=== PATIENT | male | born 1935 | race Caucasian/White ===

== ENCOUNTER 2020-11-22 15:59 | Observation (INO) ==
[2020-11-23] MEDS ORDERED: Acetaminophen 325 MG TABLET PO PRN ×2 (15:21→20:26)
[2020-11-23] MEDS ORDERED: Ondansetron ODT 4 MG TAB.RAPDIS SL PRN ×2 (15:21→20:26)
[2020-11-23] MEDS ORDERED: Naloxone 0.4 MG/ML INJ IVP PRN ×2 (15:21→20:26)
[2020-11-23] MEDS ORDERED: D5% in Water 1,000 ML IVC PRN ×2 (15:28→20:26)
[2020-11-23] MEDS ORDERED: *HR* Dextrose 50 % in Water (Vial) 50 ML VIAL IVP PRN ×2 (15:28→20:26)
[2020-11-23] MEDS ORDERED: Dextrose Gel 15 GM/37.5 ML TUBE PO PRN ×4 (15:28→20:26)
[2020-11-23] MEDS ORDERED: Azithromycin 250 MG TABLET PO SCH (15:30)
[2020-11-23] MEDS ORDERED: NON-FORMULARY MEDICATION 1 EACH EACH (Insulin Aspart [Novolog Flexpen] 5 UNIT) SQ SCH (16:30)
[2020-11-23] MEDS ORDERED: Insulin LISPRO 300 UNITS/3 ML VIAL SUBQ SCH ×2 (16:30→21:00)
[2020-11-23] MEDS ORDERED: NON-FORMULARY MEDICATION 1 EACH EACH (Atorvastatin Calcium [Lipitor] 80 MG) PO SCH (18:00)
[2020-11-23] MEDS: Ipratropium 1 PUFF INHALER IH SCH ×2 (20:44→21:06)
[2020-11-23] MEDS ORDERED: Insulin DETEMIR 100 UNIT/ML X5UNITS SUBQ SCH (21:00)
[2020-11-23] MEDS ORDERED: Insulin DETEMIR 100 UNIT/ML per UNIT SUBQ ONE (21:00)
[2020-11-23] MEDS ORDERED: Apixaban 2.5 MG TABLET PO SCH ×2 (21:00)
[2020-11-23] MEDS ORDERED: hydrALAZINE 25 MG TABLET PO SCH (21:00)
[2020-11-23] MEDS ORDERED: Apixaban 5 MG TABLET PO ONE (21:45)
[2020-11-23] MEDS: hydrALAZINE 25 MG TABLET PO SCH (21:47)
[2020-11-23] MEDS: Insulin LISPRO 300 UNITS/3 ML VIAL SUBQ SCH (21:47)
[2020-11-24] MEDS: Ipratropium 1 PUFF INHALER IH SCH ×7 (00:06→23:19)
[2020-11-24 06:24] LABS: Hematocrit 24.7 % (37.5-50.1); Hemoglobin 7.9 g/dL (12.9-16.9); Mean Corpuscular Hemoglobin 28.6 pg (28.0-33.3); Mean Corpuscular Volume 89.5 fL (83.0-100.0); Mean Platelet Volume 10.7 fL (9.4-12.4); Platelet Count 180 K/mcL (140-400); Red Blood Count 2.76 M/mcL (4.19-5.50); Red Cell Distribution Width 14.9 % (11.5-14.5)
[2020-11-24 06:50] LABS: Calcium 8.6 mg/dL (8.6-10.3); Potassium 4.3 mEq/L (3.5-5.1)
[2020-11-24] MEDS: Insulin DETEMIR 100 UNIT/ML X5UNITS SUBQ SCH ×2 (08:52→20:53)
[2020-11-24] MEDS: cefTRIAXone 1,000 MG in Water for inj. (sterile) 10 ML IVP SCH (08:53)
[2020-11-24] MEDS: Multivit/Ca/Min/Fe/FA 1 TAB TABLET PO SCH (08:53)
[2020-11-24] MEDS: Apixaban 5 MG TABLET PO SCH ×2 (08:55→20:52)
[2020-11-24] MEDS: Aspirin Enteric Coated 81 MG Tablet PO SCH (08:56)
[2020-11-24] MEDS: Insulin LISPRO 300 UNITS/3 ML VIAL SUBQ SCH ×7 (08:56→20:53)
[2020-11-24] MEDS: Metoprolol XL (24 HR) Succ 25 MG TAB.ER.24H PO SCH (08:56)
[2020-11-24] MEDS: Dexamethasone Sodium Phos/PF 10 MG/ML VIAL IVP SCH (08:58)
[2020-11-24] MEDS: hydrALAZINE 25 MG TABLET PO SCH ×3 (08:59→20:52)
[2020-11-24] MEDS ORDERED: BuPROPion XL (24 HR) 150 MG TABLET PO SCH (09:00)
[2020-11-24] MEDS ORDERED: Dexamethasone Sodium Phos/PF 10 MG/ML VIAL IVP SCH (09:00)
[2020-11-24] MEDS: BuPROPion XL (24 HR) 150 MG TABLET PO SCH (09:00)
[2020-11-24] MEDS ORDERED: Metoprolol XL (24 HR) Succ 25 MG TAB.ER.24H PO SCH (09:00)
[2020-11-24] MEDS ORDERED: cefTRIAXone 1,000 MG in Water for inj. (sterile) 10 ML IVP SCH (09:00)
[2020-11-24] MEDS ORDERED: [UNRECOGNIZED DRUG - OTHER] PO SCH (09:00)
[2020-11-24] MEDS ORDERED: Aspirin Enteric Coated 81 MG Tablet PO SCH (09:00)
[2020-11-24] MEDS: GuaiFENesin/Codeine Oral Soln 5 ML UDC PO PRN ×3 (10:39→22:35)
[2020-11-24] MEDS: Furosemide 40 MG TABLET PO SCH (10:39)
[2020-11-24] MEDS: Azithromycin 250 MG TABLET PO SCH (20:51)
[2020-11-25] MEDS: Ipratropium 1 PUFF INHALER IH SCH ×6 (03:52→23:14)
[2020-11-25] MEDS: GuaiFENesin/Codeine Oral Soln 5 ML UDC PO PRN ×2 (05:25→19:37)
[2020-11-25 07:55] LABS: Eosinophils % 0.3 %; Hematocrit 23.6 % (37.5-50.1); Hemoglobin 7.4 g/dL (12.9-16.9); Immature Granulocytes % 0.5 % (0-4); Lymphocytes # 1.3 K/mcL (0.6-4.6); Lymphocytes % 20.7 %; Mean Corpuscular HGB Conc 31.4 g/dL (31.6-35.5); Mean Corpuscular Hemoglobin 28.6 pg (28.0-33.3); Mean Corpuscular Volume 91.1 fL (83.0-100.0); Mean Platelet Volume 10.5 fL (9.4-12.4); Monocytes # 0.7 K/mcL (0.0-1.3); Monocytes % 10.9 %; Neutrophils # 4.3 K/mcL (1.6-8.9); Platelet Count 165 K/mcL (140-400); Red Blood Count 2.59 M/mcL (4.19-5.50); Red Cell Distribution Width 14.8 % (11.5-14.5); Segmented Neutrophils % 67.6 %; White Blood Count 6.3 K/mcL (4.3-11.1)
[2020-11-25 08:16] LABS: Albumin 2.9 g/dL (3.5-5.7); Albumin/Globulin Ratio 1.1 (1.1-2.2); Bilirubin,Total 0.7 mg/dL (0.3-1.0); Calcium 8.3 mg/dL (8.6-10.3); Globulin 2.6 g/dL (2.4-3.5); Total Protein 5.5 g/dL (6.4-8.9)
[2020-11-25] MEDS: Insulin LISPRO 300 UNITS/3 ML VIAL SUBQ SCH ×7 (08:47→21:13)
[2020-11-25] MEDS: Apixaban 5 MG TABLET PO SCH ×2 (08:49→20:54)
[2020-11-25] MEDS: hydrALAZINE 25 MG TABLET PO SCH ×3 (08:49→20:54)
[2020-11-25] MEDS: Multivit/Ca/Min/Fe/FA 1 TAB TABLET PO SCH (08:50)
[2020-11-25] MEDS: Metoprolol XL (24 HR) Succ 25 MG TAB.ER.24H PO SCH (08:50)
[2020-11-25] MEDS: Aspirin Enteric Coated 81 MG Tablet PO SCH (08:51)
[2020-11-25] MEDS: Furosemide 40 MG TABLET PO SCH (08:52)
[2020-11-25] MEDS: cefTRIAXone 1,000 MG in Water for inj. (sterile) 10 ML IVP SCH (08:52)
[2020-11-25] MEDS: Dexamethasone Sodium Phos/PF 10 MG/ML VIAL IVP SCH (08:54)
[2020-11-25] MEDS: BuPROPion XL (24 HR) 150 MG TABLET PO SCH (08:54)
[2020-11-25] MEDS: Insulin DETEMIR 100 UNIT/ML X5UNITS SUBQ SCH ×2 (10:02→20:55)
[2020-11-25] MEDS: Azithromycin 250 MG TABLET PO SCH (20:53)
[2020-11-26] MEDS: GuaiFENesin/Codeine Oral Soln 5 ML UDC PO PRN ×2 (02:31→20:40)
[2020-11-26] MEDS: Ipratropium 1 PUFF INHALER IH SCH ×3 (03:36→12:00)
[2020-11-26 07:00] LABS: Hematocrit 24.1 % (37.5-50.1); Hemoglobin 7.6 g/dL (12.9-16.9); Mean Corpuscular HGB Conc 31.5 g/dL (31.6-35.5); Mean Corpuscular Hemoglobin 28.8 pg (28.0-33.3); Mean Corpuscular Volume 91.3 fL (83.0-100.0); Platelet Count 174 K/mcL (140-400); Red Blood Count 2.64 M/mcL (4.19-5.50); Red Cell Distribution Width 14.9 % (11.5-14.5); White Blood Count 6.8 K/mcL (4.3-11.1)
[2020-11-26 07:26] LABS: Calcium 8.4 mg/dL (8.6-10.3); Magnesium 2.2 mg/dL (1.6-2.6); Potassium 3.9 mEq/L (3.5-5.1)
[2020-11-26] MEDS: Insulin LISPRO 300 UNITS/3 ML VIAL SUBQ SCH ×7 (08:06→20:51)
[2020-11-26] MEDS: Dexamethasone Sodium Phos/PF 10 MG/ML VIAL IVP SCH (08:07)
[2020-11-26] MEDS: cefTRIAXone 1,000 MG in Water for inj. (sterile) 10 ML IVP SCH (08:07)
[2020-11-26] MEDS: Aspirin Enteric Coated 81 MG Tablet PO SCH (08:08)
[2020-11-26] MEDS: Multivit/Ca/Min/Fe/FA 1 TAB TABLET PO SCH (08:08)
[2020-11-26] MEDS: BuPROPion XL (24 HR) 150 MG TABLET PO SCH (08:08)
[2020-11-26] MEDS: Apixaban 5 MG TABLET PO SCH ×2 (08:08→20:40)
[2020-11-26] MEDS: hydrALAZINE 25 MG TABLET PO SCH ×3 (08:08→20:40)
[2020-11-26] MEDS: Furosemide 40 MG TABLET PO SCH (08:09)
[2020-11-26] MEDS: Metoprolol XL (24 HR) Succ 25 MG TAB.ER.24H PO SCH (08:09)
[2020-11-26] MEDS: Insulin DETEMIR 100 UNIT/ML X5UNITS SUBQ SCH ×2 (08:21→20:40)
[2020-11-26] MEDS ORDERED: Ipratropium 1 PUFF INHALER IH PRN (12:41)
[2020-11-26] MEDS: Azithromycin 250 MG TABLET PO SCH (20:40)
[2020-11-27] MEDS: Furosemide 40 MG TABLET PO SCH (08:36)
[2020-11-27] MEDS: Aspirin Enteric Coated 81 MG Tablet PO SCH (08:36)
[2020-11-27] MEDS: Metoprolol XL (24 HR) Succ 25 MG TAB.ER.24H PO SCH (08:36)
[2020-11-27] MEDS: Apixaban 5 MG TABLET PO SCH ×2 (08:37→19:43)
[2020-11-27] MEDS: Multivit/Ca/Min/Fe/FA 1 TAB TABLET PO SCH (08:37)
[2020-11-27] MEDS: hydrALAZINE 25 MG TABLET PO SCH ×3 (08:37→19:43)
[2020-11-27] MEDS: BuPROPion XL (24 HR) 150 MG TABLET PO SCH (08:37)
[2020-11-27] MEDS: Insulin LISPRO 300 UNITS/3 ML VIAL SUBQ SCH ×7 (08:40→19:53)
[2020-11-27] MEDS: Dexamethasone Sodium Phos/PF 10 MG/ML VIAL IVP SCH (08:43)
[2020-11-27] MEDS: cefTRIAXone 1,000 MG in Water for inj. (sterile) 10 ML IVP SCH (08:44)
[2020-11-27] MEDS: Insulin DETEMIR 100 UNIT/ML X5UNITS SUBQ SCH (08:55)
[2020-11-27] MEDS: Azithromycin 250 MG TABLET PO SCH (19:43)
[2020-11-27] MEDS: GuaiFENesin/Codeine Oral Soln 5 ML UDC PO PRN (19:44)
[2020-11-27] MEDS ORDERED: Insulin DETEMIR 100 UNIT/ML X5UNITS SUBQ SCH (21:00)
[2020-11-28 06:56] LABS: Eosinophils # 0.1 K/mcL (0.0-0.6); Eosinophils % 0.9 %; Hematocrit 23.4 % (37.5-50.1); Hemoglobin 7.5 g/dL (12.9-16.9); Immature Granulocytes % 0.5 % (0-4); Lymphocytes # 1.5 K/mcL (0.6-4.6); Lymphocytes % 19.7 %; Mean Corpuscular HGB Conc 32.1 g/dL (31.6-35.5); Mean Corpuscular Hemoglobin 29.1 pg (28.0-33.3); Mean Corpuscular Volume 90.7 fL (83.0-100.0); Mean Platelet Volume 10.7 fL (9.4-12.4); Monocytes # 0.6 K/mcL (0.0-1.3); Monocytes % 7.7 %; Neutrophils # 5.5 K/mcL (1.6-8.9); Platelet Count 185 K/mcL (140-400); Red Blood Count 2.58 M/mcL (4.19-5.50); Red Cell Distribution Width 14.7 % (11.5-14.5); Segmented Neutrophils % 71.2 %; White Blood Count 7.7 K/mcL (4.3-11.1)
[2020-11-28 07:18] LABS: Calcium 8.3 mg/dL (8.6-10.3); Potassium 4.2 mEq/L (3.5-5.1)
[2020-11-28] MEDS: Insulin LISPRO 300 UNITS/3 ML VIAL SUBQ SCH ×6 (07:24→16:55)
[2020-11-28] MEDS: Multivit/Ca/Min/Fe/FA 1 TAB TABLET PO SCH (08:16)
[2020-11-28] MEDS: Aspirin Enteric Coated 81 MG Tablet PO SCH (08:16)
[2020-11-28] MEDS: hydrALAZINE 25 MG TABLET PO SCH ×2 (08:16→14:55)
[2020-11-28] MEDS: Metoprolol XL (24 HR) Succ 25 MG TAB.ER.24H PO SCH (08:16)
[2020-11-28] MEDS: BuPROPion XL (24 HR) 150 MG TABLET PO SCH (08:16)
[2020-11-28] MEDS: Dexamethasone Sodium Phos/PF 10 MG/ML VIAL IVP SCH (08:17)
[2020-11-28] MEDS: Apixaban 5 MG TABLET PO SCH (08:17)
[2020-11-28] MEDS: Furosemide 40 MG TABLET PO SCH (08:17)
[2020-11-28] MEDS ORDERED: Insulin DETEMIR 100 UNIT/ML X5UNITS SUBQ SCH (09:00)
[2020-11-28 10:35] LABS: Estimated Average Glucose 171 mg/dl; Hemoglobin A1C 7.6 %
[2020-11-28 14:21] VITALS: BP 156/57
== END 2020-11-28 17:58 ==
LOC: INPPIK
PROVIDERS: ADMIT Family Medicine; ATTEND Family Medicine

== ENCOUNTER 2020-11-28 16:00 | Inpatient (IN) ==
[2020-11-28] MEDS ORDERED: Dextrose Gel 15 GM/37.5 ML TUBE PO PRN ×2 (16:37)
[2020-11-28] MEDS ORDERED: *HR* Dextrose 50 % in Water (Vial) 50 ML VIAL IVP PRN (16:37)
[2020-11-28] MEDS ORDERED: D5% in Water 1,000 ML IVC PRN (16:37)
[2020-11-28] MEDS: hydrALAZINE 25 MG TABLET PO SCH (20:16)
[2020-11-28] MEDS: Ipratropium 1 PUFF INHALER IH SCH (20:58)
[2020-11-28] MEDS ORDERED: Apixaban 5 MG TABLET PO SCH (21:00)
[2020-11-29] MEDS: Ipratropium 1 PUFF INHALER IH SCH ×6 (00:41→20:44)
[2020-11-29] MEDS ORDERED: Benzonatate 100 MG CAPSULE PO PRN (04:08)
[2020-11-29] MEDS: GuaiFENesin/Codeine Oral Soln 5 ML UDC PO PRN (04:18)
[2020-11-29 06:28] LABS: Eosinophils # 0.1 K/mcL (0.0-0.6); Eosinophils % 0.8 %; Hematocrit 24.2 % (37.5-50.1); Hemoglobin 7.6 g/dL (12.9-16.9); Immature Granulocytes % 0.5 % (0-4); Lymphocytes # 1.8 K/mcL (0.6-4.6); Lymphocytes % 23.2 %; Mean Corpuscular HGB Conc 31.4 g/dL (31.6-35.5); Mean Corpuscular Hemoglobin 28.9 pg (28.0-33.3); Monocytes # 0.6 K/mcL (0.0-1.3); Monocytes % 7.6 %; Neutrophils # 5.2 K/mcL (1.6-8.9); Platelet Count 192 K/mcL (140-400); Red Blood Count 2.63 M/mcL (4.19-5.50); Red Cell Distribution Width 14.8 % (11.5-14.5); Segmented Neutrophils % 67.9 %; White Blood Count 7.6 K/mcL (4.3-11.1)
[2020-11-29 06:30] LABS: INR 1.2; Prothrombin Time 14.3 Seconds (9.4-12.1)
[2020-11-29 06:33] LABS: Activated Partial Thrombo Time 29.9 Seconds (26.0-36.0)
[2020-11-29] MEDS: Insulin LISPRO 300 UNITS/3 ML VIAL SUBQ SCH ×6 (07:32→16:29)
[2020-11-29] MEDS: Metoprolol XL (24 HR) Succ 25 MG TAB.ER.24H PO SCH (08:36)
[2020-11-29] MEDS: Insulin DETEMIR 100 UNIT/ML X5UNITS SUBQ SCH ×2 (08:36→20:08)
[2020-11-29] MEDS: Apixaban 5 MG TABLET PO SCH ×2 (08:37→20:07)
[2020-11-29] MEDS: Aspirin Enteric Coated 81 MG Tablet PO SCH (08:37)
[2020-11-29] MEDS: Multivit/Ca/Min/Fe/FA 1 TAB TABLET PO SCH (08:37)
[2020-11-29] MEDS: hydrALAZINE 25 MG TABLET PO SCH ×3 (08:37→20:07)
[2020-11-29] MEDS: Furosemide 40 MG TABLET PO SCH (08:37)
[2020-11-29] MEDS: BuPROPion XL (24 HR) 150 MG TABLET PO SCH (08:37)
[2020-11-29] MEDS ORDERED: Melatonin 3 MG TABLET PO ONE (20:44)
[2020-11-30] MEDS: Ipratropium 1 PUFF INHALER IH SCH ×7 (00:04→23:52)
[2020-11-30] MEDS: GuaiFENesin/Codeine Oral Soln 5 ML UDC PO PRN ×2 (02:33→20:07)
[2020-11-30] MEDS: Insulin LISPRO 300 UNITS/3 ML VIAL SUBQ SCH ×6 (07:22→16:49)
[2020-11-30] MEDS: hydrALAZINE 25 MG TABLET PO SCH ×3 (07:59→20:06)
[2020-11-30] MEDS: BuPROPion XL (24 HR) 150 MG TABLET PO SCH (08:00)
[2020-11-30] MEDS: Metoprolol XL (24 HR) Succ 25 MG TAB.ER.24H PO SCH (08:00)
[2020-11-30] MEDS: Apixaban 5 MG TABLET PO SCH ×2 (08:00→20:05)
[2020-11-30] MEDS: Aspirin Enteric Coated 81 MG Tablet PO SCH (08:02)
[2020-11-30] MEDS: Furosemide 40 MG TABLET PO SCH (08:02)
[2020-11-30] MEDS: Multivit/Ca/Min/Fe/FA 1 TAB TABLET PO SCH (08:02)
[2020-11-30] MEDS: Insulin DETEMIR 100 UNIT/ML X5UNITS SUBQ SCH ×2 (08:56→20:07)
[2020-12-01] MEDS ORDERED: *HR* OxyCODONE/APAP 5/325 TABLET PO PRN (00:17)
[2020-12-01] MEDS: GuaiFENesin/Codeine Oral Soln 5 ML UDC PO PRN (02:34)
[2020-12-01] MEDS: Ipratropium 1 PUFF INHALER IH SCH ×5 (04:15→20:23)
[2020-12-01] MEDS: hydrALAZINE 25 MG TABLET PO SCH ×3 (08:19→20:16)
[2020-12-01] MEDS: Multivit/Ca/Min/Fe/FA 1 TAB TABLET PO SCH (08:19)
[2020-12-01] MEDS: Furosemide 40 MG TABLET PO SCH (08:19)
[2020-12-01] MEDS: Metoprolol XL (24 HR) Succ 25 MG TAB.ER.24H PO SCH (08:20)
[2020-12-01] MEDS: Insulin LISPRO 300 UNITS/3 ML VIAL SUBQ SCH ×6 (08:20→16:35)
[2020-12-01] MEDS: BuPROPion XL (24 HR) 150 MG TABLET PO SCH (08:20)
[2020-12-01] MEDS: Apixaban 5 MG TABLET PO SCH ×2 (08:20→20:16)
[2020-12-01] MEDS: Aspirin Enteric Coated 81 MG Tablet PO SCH (08:20)
[2020-12-01] MEDS: Insulin DETEMIR 100 UNIT/ML X5UNITS SUBQ SCH ×2 (08:22→20:20)
[2020-12-01] MEDS: Acetaminophen 325 MG TABLET PO PRN (13:15)
[2020-12-01] MEDS: Nystatin POWDER 30 GM BOTTLE TP SCH ×2 (14:38→21:33)
[2020-12-02] MEDS: Ipratropium 1 PUFF INHALER IH SCH ×6 (00:07→20:27)
[2020-12-02] MEDS: Insulin LISPRO 300 UNITS/3 ML VIAL SUBQ SCH ×4 (07:09→16:30)
[2020-12-02] MEDS: BuPROPion XL (24 HR) 150 MG TABLET PO SCH (08:34)
[2020-12-02] MEDS: Aspirin Enteric Coated 81 MG Tablet PO SCH (08:34)
[2020-12-02] MEDS: Metoprolol XL (24 HR) Succ 25 MG TAB.ER.24H PO SCH (08:34)
[2020-12-02] MEDS: Multivit/Ca/Min/Fe/FA 1 TAB TABLET PO SCH (08:35)
[2020-12-02] MEDS: Furosemide 40 MG TABLET PO SCH (08:35)
[2020-12-02] MEDS: Apixaban 5 MG TABLET PO SCH ×2 (08:35→20:51)
[2020-12-02] MEDS: Insulin DETEMIR 100 UNIT/ML X5UNITS SUBQ SCH ×2 (08:36→09:18)
[2020-12-02] MEDS: hydrALAZINE 25 MG TABLET PO SCH ×3 (08:36→20:51)
[2020-12-02] MEDS: Nystatin POWDER 30 GM BOTTLE TP SCH ×3 (08:36→21:04)
[2020-12-02] MEDS: GuaiFENesin/Codeine Oral Soln 5 ML UDC PO PRN (23:47)
[2020-12-03] MEDS: Ipratropium 1 PUFF INHALER IH SCH ×6 (00:31→20:29)
[2020-12-03] MEDS: BuPROPion XL (24 HR) 150 MG TABLET PO SCH (08:36)
[2020-12-03] MEDS: hydrALAZINE 25 MG TABLET PO SCH ×3 (08:36→20:46)
[2020-12-03] MEDS: Furosemide 40 MG TABLET PO SCH (08:36)
[2020-12-03] MEDS: Aspirin Enteric Coated 81 MG Tablet PO SCH (08:36)
[2020-12-03] MEDS: Metoprolol XL (24 HR) Succ 25 MG TAB.ER.24H PO SCH (08:36)
[2020-12-03] MEDS: Multivit/Ca/Min/Fe/FA 1 TAB TABLET PO SCH (08:36)
[2020-12-03] MEDS: Apixaban 5 MG TABLET PO SCH ×2 (08:37→20:47)
[2020-12-03] MEDS: Insulin LISPRO 300 UNITS/3 ML VIAL SUBQ SCH ×3 (08:39→17:45)
[2020-12-03] MEDS: Insulin DETEMIR 100 UNIT/ML X5UNITS SUBQ SCH (08:39)
[2020-12-03] MEDS: Nystatin POWDER 30 GM BOTTLE TP SCH ×3 (09:49→20:48)
[2020-12-04] MEDS: Ipratropium 1 PUFF INHALER IH SCH ×6 (00:29→20:27)
[2020-12-04] MEDS: Furosemide 40 MG TABLET PO SCH (09:55)
[2020-12-04] MEDS: Aspirin Enteric Coated 81 MG Tablet PO SCH (09:55)
[2020-12-04] MEDS: Apixaban 5 MG TABLET PO SCH ×2 (09:56→20:29)
[2020-12-04] MEDS: Multivit/Ca/Min/Fe/FA 1 TAB TABLET PO SCH (09:56)
[2020-12-04] MEDS: Metoprolol XL (24 HR) Succ 25 MG TAB.ER.24H PO SCH (09:57)
[2020-12-04] MEDS: BuPROPion XL (24 HR) 150 MG TABLET PO SCH (09:57)
[2020-12-04] MEDS: hydrALAZINE 25 MG TABLET PO SCH ×3 (10:04→20:28)
[2020-12-04] MEDS: Insulin DETEMIR 100 UNIT/ML X5UNITS SUBQ SCH (10:04)
[2020-12-04] MEDS: Insulin LISPRO 300 UNITS/3 ML VIAL SUBQ SCH ×3 (10:08→17:13)
[2020-12-04] MEDS: Nystatin POWDER 30 GM BOTTLE TP SCH ×3 (10:09→17:13)
[2020-12-04] MEDS: Acetaminophen 325 MG TABLET PO PRN (15:53)
[2020-12-05] MEDS: Ipratropium 1 PUFF INHALER IH SCH ×3 (00:12→07:55)
[2020-12-05] MEDS: Insulin DETEMIR 100 UNIT/ML X5UNITS SUBQ SCH (08:12)
[2020-12-05] MEDS: Apixaban 5 MG TABLET PO SCH ×2 (08:13→21:38)
[2020-12-05] MEDS: Aspirin Enteric Coated 81 MG Tablet PO SCH (08:14)
[2020-12-05] MEDS: hydrALAZINE 25 MG TABLET PO SCH ×3 (08:15→21:37)
[2020-12-05] MEDS: Metoprolol XL (24 HR) Succ 25 MG TAB.ER.24H PO SCH (08:16)
[2020-12-05] MEDS: BuPROPion XL (24 HR) 150 MG TABLET PO SCH (08:16)
[2020-12-05] MEDS: Furosemide 40 MG TABLET PO SCH (08:17)
[2020-12-05] MEDS: Multivit/Ca/Min/Fe/FA 1 TAB TABLET PO SCH (08:17)
[2020-12-05] MEDS: Nystatin POWDER 30 GM BOTTLE TP SCH ×3 (08:18→21:38)
[2020-12-05] MEDS: Insulin LISPRO 300 UNITS/3 ML VIAL SUBQ SCH ×3 (08:24→16:52)
[2020-12-05] MEDS ORDERED: Ipratropium 1 PUFF INHALER IH PRN (08:46)
[2020-12-05] MEDS: Acetaminophen 325 MG TABLET PO PRN (17:58)
[2020-12-06 07:03] VITALS: BP 151/63
[2020-12-06] MEDS: Apixaban 5 MG TABLET PO SCH (08:54)
[2020-12-06] MEDS: Aspirin Enteric Coated 81 MG Tablet PO SCH (08:55)
[2020-12-06] MEDS: Metoprolol XL (24 HR) Succ 25 MG TAB.ER.24H PO SCH (08:55)
[2020-12-06] MEDS: BuPROPion XL (24 HR) 150 MG TABLET PO SCH (08:55)
[2020-12-06] MEDS: hydrALAZINE 25 MG TABLET PO SCH (08:55)
[2020-12-06] MEDS: Multivit/Ca/Min/Fe/FA 1 TAB TABLET PO SCH (08:55)
[2020-12-06] MEDS: Furosemide 40 MG TABLET PO SCH (08:56)
[2020-12-06] MEDS: Insulin DETEMIR 100 UNIT/ML X5UNITS SUBQ SCH (08:59)
[2020-12-06] MEDS: Insulin LISPRO 300 UNITS/3 ML VIAL SUBQ SCH ×2 (08:59→11:44)
[2020-12-06] MEDS: Nystatin POWDER 30 GM BOTTLE TP SCH (09:04)
== END 2020-12-06 15:39 | disposition home health service (06) | DRG 189 ==
LOC: INPPIK 18:17
PROVIDERS: ADMIT Family Medicine; ATTEND Family Medicine

== ENCOUNTER 2020-12-21 17:48 | Inpatient (IN) ==
[2020-12-22] MEDS ORDERED: Benzonatate 100 MG CAPSULE PO PRN (10:51)
[2020-12-22] MEDS: Insulin LISPRO 300 UNITS/3 ML VIAL SUBQ SCH ×2 (14:11→17:12)
[2020-12-22] MEDS: hydrALAZINE 25 MG TABLET PO SCH ×2 (17:11→20:08)
[2020-12-22] MEDS: Insulin DETEMIR 100 UNIT/ML X5UNITS SUBQ SCH (20:06)
[2020-12-22] MEDS: Sucralfate 1 GM TABLET PO SCH (20:08)
[2020-12-22] MEDS ORDERED: Melatonin 3 MG TABLET PO ONE (22:18)
[2020-12-22] MEDS: *HR* OxyCODONE Immed Rel 5 MG TABLET PO PRN (22:32)
[2020-12-23] MEDS ORDERED: hydrOXYzine pamoate 25 MG CAPSULE PO ONE (03:36)
[2020-12-23] MEDS ORDERED: *HR* Dextrose 50 % in Water (Vial) 50 ML VIAL IVP PRN (05:56)
[2020-12-23] MEDS ORDERED: D5% in Water 1,000 ML IVC PRN (05:56)
[2020-12-23] MEDS ORDERED: Dextrose Gel 15 GM/37.5 ML TUBE PO PRN ×2 (05:56)
[2020-12-23] MEDS ORDERED: Dextrose Gel 15 GM/37.5 ML TUBE PO ONE (05:58)
[2020-12-23 07:24] LABS: Basophils % 0.5 %; Eosinophils # 0.1 K/mcL (0.0-0.6); Eosinophils % 0.9 %; Hematocrit 26.4 % (37.5-50.1); Hemoglobin 8.2 g/dL (12.9-16.9); Immature Granulocytes % 0.3 % (0-4); Lymphocytes # 0.8 K/mcL (0.6-4.6); Lymphocytes % 11.6 %; Mean Corpuscular HGB Conc 31.1 g/dL (31.6-35.5); Mean Corpuscular Hemoglobin 29.1 pg (28.0-33.3); Mean Corpuscular Volume 93.6 fL (83.0-100.0); Mean Platelet Volume 10.2 fL (9.4-12.4); Monocytes # 0.9 K/mcL (0.0-1.3); Monocytes % 12.8 %; Neutrophils # 4.9 K/mcL (1.6-8.9); Platelet Count 175 K/mcL (140-400); Red Blood Count 2.82 M/mcL (4.19-5.50); Segmented Neutrophils % 73.9 %; White Blood Count 6.6 K/mcL (4.3-11.1)
[2020-12-23 07:37] LABS: INR 1.5; Prothrombin Time 16.6 Seconds (9.4-12.1)
[2020-12-23] MEDS: Insulin LISPRO 300 UNITS/3 ML VIAL SUBQ SCH ×3 (07:45→17:44)
[2020-12-23] MEDS ORDERED: Furosemide 40 MG TABLET PO SCH (09:00)
[2020-12-23] MEDS: BuPROPion XL (24 HR) 150 MG TABLET PO SCH (10:31)
[2020-12-23] MEDS: levoFLOXacin 500 MG TABLET PO SCH (10:31)
[2020-12-23] MEDS: hydrALAZINE 25 MG TABLET PO SCH ×3 (10:31→21:59)
[2020-12-23] MEDS: Multivit/Ca/Min/Fe/FA 1 TAB TABLET PO SCH (10:31)
[2020-12-23] MEDS: Aspirin Enteric Coated 81 MG Tablet PO SCH (10:31)
[2020-12-23] MEDS: Metoprolol XL (24 HR) Succ 25 MG TAB.ER.24H PO SCH (10:31)
[2020-12-23] MEDS: Insulin DETEMIR 100 UNIT/ML X5UNITS SUBQ SCH ×2 (11:59→22:00)
[2020-12-23] MEDS: *HR* OxyCODONE Immed Rel 5 MG TABLET PO PRN (14:38)
[2020-12-23] MEDS: *HR* LORazepam 0.5 MG TABLET PO PRN ×2 (15:40→22:06)
[2020-12-23] MEDS: Sucralfate 1 GM TABLET PO SCH (21:59)
[2020-12-24] MEDS: Furosemide 40 MG TABLET PO SCH ×3 (00:55→16:16)
[2020-12-24 06:38] LABS: Hematocrit 28.6 % (37.5-50.1); Hemoglobin 8.8 g/dL (12.9-16.9); Mean Corpuscular HGB Conc 30.8 g/dL (31.6-35.5); Mean Corpuscular Hemoglobin 28.9 pg (28.0-33.3); Mean Corpuscular Volume 94.1 fL (83.0-100.0); Mean Platelet Volume 10.2 fL (9.4-12.4); Platelet Count 188 K/mcL (140-400); Red Blood Count 3.04 M/mcL (4.19-5.50); Red Cell Distribution Width 15.9 % (11.5-14.5); White Blood Count 6.5 K/mcL (4.3-11.1)
[2020-12-24 07:12] LABS: Calcium 8.5 mg/dL (8.6-10.3); Magnesium 2.1 mg/dL (1.6-2.6); Potassium 3.8 mEq/L (3.5-5.1)
[2020-12-24] MEDS: Aspirin Enteric Coated 81 MG Tablet PO SCH (08:14)
[2020-12-24] MEDS: Metoprolol XL (24 HR) Succ 25 MG TAB.ER.24H PO SCH (08:14)
[2020-12-24] MEDS: levoFLOXacin 500 MG TABLET PO SCH (08:15)
[2020-12-24] MEDS: hydrALAZINE 25 MG TABLET PO SCH ×3 (08:15→20:39)
[2020-12-24] MEDS: *HR* OxyCODONE Immed Rel 5 MG TABLET PO PRN ×2 (08:15→20:53)
[2020-12-24] MEDS: Multivit/Ca/Min/Fe/FA 1 TAB TABLET PO SCH (08:15)
[2020-12-24] MEDS: BuPROPion XL (24 HR) 150 MG TABLET PO SCH (08:15)
[2020-12-24] MEDS: Insulin LISPRO 300 UNITS/3 ML VIAL SUBQ SCH ×3 (08:16→16:17)
[2020-12-24] MEDS: Insulin DETEMIR 100 UNIT/ML X5UNITS SUBQ SCH ×2 (08:17→20:53)
[2020-12-24] MEDS: Sucralfate 1 GM TABLET PO SCH (20:39)
[2020-12-24] MEDS: *HR* LORazepam 0.5 MG TABLET PO PRN (22:56)
[2020-12-25] MEDS: Insulin LISPRO 300 UNITS/3 ML VIAL SUBQ SCH ×3 (08:02→16:54)
[2020-12-25] MEDS: Aspirin Enteric Coated 81 MG Tablet PO SCH (08:03)
[2020-12-25] MEDS: Metoprolol XL (24 HR) Succ 25 MG TAB.ER.24H PO SCH (08:04)
[2020-12-25] MEDS: Multivit/Ca/Min/Fe/FA 1 TAB TABLET PO SCH (08:04)
[2020-12-25] MEDS: Furosemide 40 MG TABLET PO SCH ×2 (08:04→16:54)
[2020-12-25] MEDS: Apixaban 5 MG TABLET PO SCH ×2 (08:04→19:52)
[2020-12-25] MEDS: hydrALAZINE 25 MG TABLET PO SCH ×3 (08:04→19:52)
[2020-12-25] MEDS: BuPROPion XL (24 HR) 150 MG TABLET PO SCH (08:04)
[2020-12-25] MEDS: levoFLOXacin 500 MG TABLET PO SCH (08:05)
[2020-12-25] MEDS: Insulin DETEMIR 100 UNIT/ML X5UNITS SUBQ SCH ×2 (08:41→19:53)
[2020-12-25] MEDS: *HR* OxyCODONE Immed Rel 5 MG TABLET PO PRN ×2 (16:54→23:44)
[2020-12-25] MEDS: Sucralfate 1 GM TABLET PO SCH (19:53)
[2020-12-25] MEDS: *HR* LORazepam 0.5 MG TABLET PO PRN (23:04)
[2020-12-26] MEDS: Temazepam 15 MG CAPSULE PO PRN (00:44)
[2020-12-26] MEDS ORDERED: D5% in Water 1,000 ML IVC PRN (09:37)
[2020-12-26] MEDS ORDERED: Dextrose Gel 15 GM/37.5 ML TUBE PO PRN ×2 (09:37)
[2020-12-26] MEDS ORDERED: *HR* Dextrose 50 % in Water (Vial) 50 ML VIAL IVP PRN (09:37)
[2020-12-26] MEDS: Furosemide 40 MG TABLET PO SCH (10:02)
[2020-12-26] MEDS: Multivit/Ca/Min/Fe/FA 1 TAB TABLET PO SCH (10:02)
[2020-12-26] MEDS: levoFLOXacin 500 MG TABLET PO SCH (10:02)
[2020-12-26] MEDS: Aspirin Enteric Coated 81 MG Tablet PO SCH (10:02)
[2020-12-26] MEDS: Apixaban 5 MG TABLET PO SCH ×2 (10:02→20:33)
[2020-12-26] MEDS: BuPROPion XL (24 HR) 150 MG TABLET PO SCH (10:02)
[2020-12-26] MEDS: Metoprolol XL (24 HR) Succ 25 MG TAB.ER.24H PO SCH (10:03)
[2020-12-26] MEDS: *HR* OxyCODONE Immed Rel 5 MG TABLET PO PRN ×2 (10:03→20:34)
[2020-12-26] MEDS: hydrALAZINE 25 MG TABLET PO SCH ×3 (10:03→20:34)
[2020-12-26] MEDS: Insulin LISPRO 300 UNITS/3 ML VIAL SUBQ SCH ×5 (10:21→17:37)
[2020-12-26] MEDS: Insulin DETEMIR 100 UNIT/ML X5UNITS SUBQ SCH ×2 (10:21→20:34)
[2020-12-26] MEDS ORDERED: polyethylene glycoL 3350 17 GM POWD.PACK PO PRN (14:54)
[2020-12-26] MEDS ORDERED: Bisacodyl 10 MG RECTAL SUPPOSITORY RC PRN (14:54)
[2020-12-26 16:20] LABS: Basophils % 0.2 %; Hematocrit 29.3 % (37.5-50.1); Hemoglobin 9.1 g/dL (12.9-16.9); Immature Granulocytes % 0.3 % (0-4); Lymphocytes # 1.1 K/mcL (0.6-4.6); Lymphocytes % 12.6 %; Mean Corpuscular HGB Conc 31.1 g/dL (31.6-35.5); Mean Corpuscular Hemoglobin 28.9 pg (28.0-33.3); Mean Platelet Volume 10.2 fL (9.4-12.4); Monocytes # 1.4 K/mcL (0.0-1.3); Monocytes % 15.3 %; Neutrophils # 6.5 K/mcL (1.6-8.9); Platelet Count 202 K/mcL (140-400); Red Blood Count 3.15 M/mcL (4.19-5.50); Red Cell Distribution Width 15.8 % (11.5-14.5); Segmented Neutrophils % 71.6 %; White Blood Count 9.1 K/mcL (4.3-11.1)
[2020-12-26 16:55] LABS: Thyroid Stimulating Hormone 1.178 mcIU/mL (0.340-5.600)
[2020-12-26 17:05] LABS: Albumin 2.9 g/dL (3.5-5.7); Albumin/Globulin Ratio 0.8 (1.1-2.2); Bilirubin,Total 0.6 mg/dL (0.3-1.0); Calcium 8.4 mg/dL (8.6-10.3); Globulin 3.6 g/dL (2.4-3.5); Phosphorous 3.5 mg/dL (2.7-4.5); Potassium 3.8 mEq/L (3.5-5.1); Total Protein 6.5 g/dL (6.4-8.9)
[2020-12-26] MEDS: Sennosides/Docusate Sodium TABLET PO SCH ×2 (17:34→20:33)
[2020-12-26] MEDS: Sucralfate 1 GM TABLET PO SCH (20:33)
[2020-12-27] MEDS: Insulin DETEMIR 100 UNIT/ML X5UNITS SUBQ SCH ×2 (09:10→20:43)
[2020-12-27] MEDS: Sennosides/Docusate Sodium TABLET PO SCH ×2 (09:26→20:42)
[2020-12-27] MEDS: Aspirin Enteric Coated 81 MG Tablet PO SCH (09:26)
[2020-12-27] MEDS: Multivit/Ca/Min/Fe/FA 1 TAB TABLET PO SCH (09:26)
[2020-12-27] MEDS: Apixaban 5 MG TABLET PO SCH ×2 (09:26→20:42)
[2020-12-27] MEDS: BuPROPion XL (24 HR) 150 MG TABLET PO SCH (09:26)
[2020-12-27] MEDS: hydrALAZINE 25 MG TABLET PO SCH ×3 (09:26→20:42)
[2020-12-27] MEDS: Insulin LISPRO 300 UNITS/3 ML VIAL SUBQ SCH ×6 (09:27→16:27)
[2020-12-27] MEDS: Metoprolol XL (24 HR) Succ 25 MG TAB.ER.24H PO SCH (09:27)
[2020-12-27] MEDS: *HR* OxyCODONE Immed Rel 5 MG TABLET PO PRN (20:42)
[2020-12-27] MEDS: Sucralfate 1 GM TABLET PO SCH (20:42)
[2020-12-28] MEDS: *HR* LORazepam 0.5 MG TABLET PO PRN (02:12)
[2020-12-28] MEDS: Insulin DETEMIR 100 UNIT/ML X5UNITS SUBQ SCH ×2 (08:33→21:08)
[2020-12-28] MEDS: Insulin LISPRO 300 UNITS/3 ML VIAL SUBQ SCH ×6 (08:33→17:03)
[2020-12-28] MEDS: Furosemide 40 MG TABLET PO SCH (08:35)
[2020-12-28] MEDS: Apixaban 5 MG TABLET PO SCH ×2 (08:35→19:57)
[2020-12-28] MEDS: BuPROPion XL (24 HR) 150 MG TABLET PO SCH (08:36)
[2020-12-28] MEDS: Multivit/Ca/Min/Fe/FA 1 TAB TABLET PO SCH (08:36)
[2020-12-28] MEDS: Sennosides/Docusate Sodium TABLET PO SCH ×2 (08:36→19:56)
[2020-12-28] MEDS: hydrALAZINE 25 MG TABLET PO SCH ×3 (08:36→19:56)
[2020-12-28] MEDS: Metoprolol XL (24 HR) Succ 25 MG TAB.ER.24H PO SCH (08:36)
[2020-12-28] MEDS: Aspirin Enteric Coated 81 MG Tablet PO SCH (08:36)
[2020-12-28 13:34] LABS: Hematocrit RBC Folate 29.3 %
[2020-12-28] MEDS: *HR* OxyCODONE Immed Rel 5 MG TABLET PO PRN (19:55)
[2020-12-28] MEDS: Sucralfate 1 GM TABLET PO SCH (19:58)
[2020-12-28] MEDS: Temazepam 15 MG CAPSULE PO PRN (23:24)
[2020-12-29 07:07] LABS: Calcium 8.3 mg/dL (8.6-10.3); Potassium 3.7 mEq/L (3.5-5.1)
[2020-12-29] MEDS: Insulin LISPRO 300 UNITS/3 ML VIAL SUBQ SCH ×6 (08:22→16:03)
[2020-12-29] MEDS: Multivit/Ca/Min/Fe/FA 1 TAB TABLET PO SCH (08:24)
[2020-12-29] MEDS: Metoprolol XL (24 HR) Succ 25 MG TAB.ER.24H PO SCH (08:24)
[2020-12-29] MEDS: Apixaban 5 MG TABLET PO SCH ×2 (08:24→21:34)
[2020-12-29] MEDS: hydrALAZINE 25 MG TABLET PO SCH ×3 (08:24→21:35)
[2020-12-29] MEDS: Aspirin Enteric Coated 81 MG Tablet PO SCH (08:24)
[2020-12-29] MEDS: BuPROPion XL (24 HR) 150 MG TABLET PO SCH (08:24)
[2020-12-29] MEDS: Furosemide 40 MG TABLET PO SCH (08:25)
[2020-12-29] MEDS: Sennosides/Docusate Sodium TABLET PO SCH ×2 (08:25→21:41)
[2020-12-29] MEDS: Insulin DETEMIR 100 UNIT/ML X5UNITS SUBQ SCH ×2 (08:51→21:38)
[2020-12-29] MEDS: Temazepam 15 MG CAPSULE PO PRN (21:34)
[2020-12-29] MEDS: Sucralfate 1 GM TABLET PO SCH (21:34)
[2020-12-29] MEDS: *HR* OxyCODONE Immed Rel 5 MG TABLET PO PRN (21:35)
[2020-12-30] MEDS: Apixaban 5 MG TABLET PO SCH ×2 (08:26→22:21)
[2020-12-30] MEDS: BuPROPion XL (24 HR) 150 MG TABLET PO SCH (08:26)
[2020-12-30] MEDS: Furosemide 40 MG TABLET PO SCH (08:26)
[2020-12-30] MEDS: Metoprolol XL (24 HR) Succ 25 MG TAB.ER.24H PO SCH (08:26)
[2020-12-30] MEDS: hydrALAZINE 25 MG TABLET PO SCH ×3 (08:26→22:20)
[2020-12-30] MEDS: Aspirin Enteric Coated 81 MG Tablet PO SCH (08:27)
[2020-12-30] MEDS: Multivit/Ca/Min/Fe/FA 1 TAB TABLET PO SCH (08:27)
[2020-12-30] MEDS: Insulin LISPRO 300 UNITS/3 ML VIAL SUBQ SCH ×6 (08:27→15:47)
[2020-12-30] MEDS: Sennosides/Docusate Sodium TABLET PO SCH ×2 (08:27→22:20)
[2020-12-30] MEDS: Insulin DETEMIR 100 UNIT/ML X5UNITS SUBQ SCH ×2 (08:33→22:45)
[2020-12-30] MEDS: Temazepam 15 MG CAPSULE PO PRN (22:21)
[2020-12-30] MEDS: Sucralfate 1 GM TABLET PO SCH (22:21)
[2020-12-31] MEDS: *HR* OxyCODONE Immed Rel 5 MG TABLET PO PRN ×2 (07:02→20:48)
[2020-12-31] MEDS: Insulin LISPRO 300 UNITS/3 ML VIAL SUBQ SCH ×6 (08:37→17:39)
[2020-12-31] MEDS: Furosemide 40 MG TABLET PO SCH (08:49)
[2020-12-31] MEDS: Apixaban 5 MG TABLET PO SCH ×2 (08:49→20:48)
[2020-12-31] MEDS: Multivit/Ca/Min/Fe/FA 1 TAB TABLET PO SCH (08:49)
[2020-12-31] MEDS: hydrALAZINE 25 MG TABLET PO SCH ×3 (08:49→20:48)
[2020-12-31] MEDS: Aspirin Enteric Coated 81 MG Tablet PO SCH (08:49)
[2020-12-31] MEDS: Metoprolol XL (24 HR) Succ 25 MG TAB.ER.24H PO SCH (08:49)
[2020-12-31] MEDS: Sennosides/Docusate Sodium TABLET PO SCH ×2 (08:49→20:47)
[2020-12-31] MEDS: BuPROPion XL (24 HR) 150 MG TABLET PO SCH (08:50)
[2020-12-31] MEDS: Insulin DETEMIR 100 UNIT/ML X5UNITS SUBQ SCH ×2 (08:51→20:48)
[2020-12-31] MEDS: Sucralfate 1 GM TABLET PO SCH (20:47)
[2020-12-31] MEDS: Temazepam 15 MG CAPSULE PO PRN (20:47)
[2020-12-31] MEDS: *HR* LORazepam 0.5 MG TABLET PO PRN (23:07)
[2021-01-01] MEDS: Sennosides/Docusate Sodium TABLET PO SCH ×2 (09:51→21:34)
[2021-01-01] MEDS: Apixaban 5 MG TABLET PO SCH ×2 (09:51→21:35)
[2021-01-01] MEDS: Aspirin Enteric Coated 81 MG Tablet PO SCH (09:51)
[2021-01-01] MEDS: BuPROPion XL (24 HR) 150 MG TABLET PO SCH (09:52)
[2021-01-01] MEDS: Multivit/Ca/Min/Fe/FA 1 TAB TABLET PO SCH (09:52)
[2021-01-01] MEDS: Furosemide 40 MG TABLET PO SCH (09:52)
[2021-01-01] MEDS: Metoprolol XL (24 HR) Succ 25 MG TAB.ER.24H PO SCH (09:52)
[2021-01-01] MEDS: hydrALAZINE 25 MG TABLET PO SCH ×3 (09:52→21:34)
[2021-01-01] MEDS: *HR* OxyCODONE Immed Rel 5 MG TABLET PO PRN ×2 (09:53→21:51)
[2021-01-01] MEDS: Insulin LISPRO 300 UNITS/3 ML VIAL SUBQ SCH ×6 (09:56→18:11)
[2021-01-01] MEDS: Insulin DETEMIR 100 UNIT/ML X5UNITS SUBQ SCH ×2 (10:10→21:35)
[2021-01-01] MEDS: Sucralfate 1 GM TABLET PO SCH (21:35)
[2021-01-02] MEDS: Insulin LISPRO 300 UNITS/3 ML VIAL SUBQ SCH ×6 (09:25→16:01)
[2021-01-02] MEDS: Apixaban 5 MG TABLET PO SCH ×2 (09:26→20:19)
[2021-01-02] MEDS: Aspirin Enteric Coated 81 MG Tablet PO SCH (09:27)
[2021-01-02] MEDS: hydrALAZINE 25 MG TABLET PO SCH ×3 (09:27→20:19)
[2021-01-02] MEDS: BuPROPion XL (24 HR) 150 MG TABLET PO SCH (09:28)
[2021-01-02] MEDS: Multivit/Ca/Min/Fe/FA 1 TAB TABLET PO SCH (09:28)
[2021-01-02] MEDS: Metoprolol XL (24 HR) Succ 25 MG TAB.ER.24H PO SCH (09:28)
[2021-01-02] MEDS: Sennosides/Docusate Sodium TABLET PO SCH ×2 (09:28→20:19)
[2021-01-02] MEDS: Furosemide 40 MG TABLET PO SCH (09:29)
[2021-01-02] MEDS: Insulin DETEMIR 100 UNIT/ML X5UNITS SUBQ SCH ×2 (09:32→20:19)
[2021-01-02] MEDS: Sucralfate 1 GM TABLET PO SCH (20:19)
[2021-01-02] MEDS: *HR* OxyCODONE Immed Rel 5 MG TABLET PO PRN (20:23)
[2021-01-02] MEDS: Temazepam 15 MG CAPSULE PO PRN (23:30)
[2021-01-03] MEDS: Metoprolol XL (24 HR) Succ 25 MG TAB.ER.24H PO SCH (09:13)
[2021-01-03] MEDS: Apixaban 5 MG TABLET PO SCH ×2 (09:14→20:30)
[2021-01-03] MEDS: Aspirin Enteric Coated 81 MG Tablet PO SCH (09:15)
[2021-01-03] MEDS: BuPROPion XL (24 HR) 150 MG TABLET PO SCH (09:15)
[2021-01-03] MEDS: Multivit/Ca/Min/Fe/FA 1 TAB TABLET PO SCH (09:15)
[2021-01-03] MEDS: hydrALAZINE 25 MG TABLET PO SCH ×3 (09:16→20:30)
[2021-01-03] MEDS: Insulin LISPRO 300 UNITS/3 ML VIAL SUBQ SCH ×6 (09:17→15:56)
[2021-01-03] MEDS: Furosemide 40 MG TABLET PO SCH (09:17)
[2021-01-03] MEDS: Sennosides/Docusate Sodium TABLET PO SCH ×2 (09:21→20:31)
[2021-01-03] MEDS: Insulin DETEMIR 100 UNIT/ML X5UNITS SUBQ SCH ×2 (10:38→20:33)
[2021-01-03 10:44] LABS: Hematocrit 25.5 % (37.5-50.1); Hemoglobin 7.9 g/dL (12.9-16.9); Mean Corpuscular Hemoglobin 28.5 pg (28.0-33.3); Mean Corpuscular Volume 92.1 fL (83.0-100.0); Mean Platelet Volume 9.6 fL (9.4-12.4); Platelet Count 280 K/mcL (140-400); Red Blood Count 2.77 M/mcL (4.19-5.50); Red Cell Distribution Width 15.7 % (11.5-14.5); White Blood Count 7.3 K/mcL (4.3-11.1)
[2021-01-03 10:59] LABS: Calcium 8.3 mg/dL (8.6-10.3); Potassium 4.4 mEq/L (3.5-5.1)
[2021-01-03] MEDS: Sucralfate 1 GM TABLET PO SCH (20:36)
[2021-01-03] MEDS: *HR* OxyCODONE Immed Rel 5 MG TABLET PO PRN (20:43)
[2021-01-03] MEDS: *HR* LORazepam 0.5 MG TABLET PO PRN (20:43)
[2021-01-04] MEDS: Melatonin 3 MG TABLET PO PRN ×2 (00:18→21:14)
[2021-01-04] MEDS: *HR* OxyCODONE Immed Rel 5 MG TABLET PO PRN ×2 (08:01→21:15)
[2021-01-04] MEDS: Apixaban 5 MG TABLET PO SCH ×2 (08:01→21:14)
[2021-01-04] MEDS: Sennosides/Docusate Sodium TABLET PO SCH ×2 (08:01→21:15)
[2021-01-04] MEDS: Aspirin Enteric Coated 81 MG Tablet PO SCH (08:02)
[2021-01-04] MEDS: hydrALAZINE 25 MG TABLET PO SCH ×3 (08:02→21:14)
[2021-01-04] MEDS: Metoprolol XL (24 HR) Succ 25 MG TAB.ER.24H PO SCH (08:02)
[2021-01-04] MEDS: BuPROPion XL (24 HR) 150 MG TABLET PO SCH (08:02)
[2021-01-04] MEDS: Furosemide 40 MG TABLET PO SCH (08:02)
[2021-01-04] MEDS: Multivit/Ca/Min/Fe/FA 1 TAB TABLET PO SCH (08:02)
[2021-01-04] MEDS: Insulin LISPRO 300 UNITS/3 ML VIAL SUBQ SCH ×6 (08:05→17:52)
[2021-01-04] MEDS: Insulin DETEMIR 100 UNIT/ML X5UNITS SUBQ SCH ×2 (10:41→21:14)
[2021-01-04] MEDS: Sucralfate 1 GM TABLET PO SCH (21:15)
[2021-01-05] MEDS: Insulin LISPRO 300 UNITS/3 ML VIAL SUBQ SCH ×6 (07:39→16:37)
[2021-01-05 08:38] LABS: Basophils % 0.4 %; Eosinophils # 0.2 K/mcL (0.0-0.6); Eosinophils % 2.2 %; Hematocrit 24.3 % (37.5-50.1); Hemoglobin 7.3 g/dL (12.9-16.9); Immature Granulocytes % 0.3 % (0-4); Lymphocytes # 1.6 K/mcL (0.6-4.6); Lymphocytes % 23.2 %; Mean Corpuscular Hemoglobin 27.8 pg (28.0-33.3); Mean Corpuscular Volume 92.4 fL (83.0-100.0); Mean Platelet Volume 9.9 fL (9.4-12.4); Monocytes # 0.8 K/mcL (0.0-1.3); Monocytes % 11.5 %; Neutrophils # 4.2 K/mcL (1.6-8.9); Platelet Count 256 K/mcL (140-400); Red Blood Count 2.63 M/mcL (4.19-5.50); Segmented Neutrophils % 62.4 %; White Blood Count 6.8 K/mcL (4.3-11.1)
[2021-01-05 08:55] LABS: Calcium 8.2 mg/dL (8.6-10.3); Potassium 4.5 mEq/L (3.5-5.1)
[2021-01-05] MEDS: hydrALAZINE 25 MG TABLET PO SCH ×3 (09:48→20:14)
[2021-01-05] MEDS: Metoprolol XL (24 HR) Succ 25 MG TAB.ER.24H PO SCH (09:49)
[2021-01-05] MEDS: BuPROPion XL (24 HR) 150 MG TABLET PO SCH (09:49)
[2021-01-05] MEDS: Apixaban 5 MG TABLET PO SCH ×2 (09:49→20:14)
[2021-01-05] MEDS: Aspirin Enteric Coated 81 MG Tablet PO SCH (09:49)
[2021-01-05] MEDS: Sennosides/Docusate Sodium TABLET PO SCH ×2 (09:49→20:13)
[2021-01-05] MEDS: Multivit/Ca/Min/Fe/FA 1 TAB TABLET PO SCH (09:49)
[2021-01-05] MEDS: Furosemide 40 MG TABLET PO SCH (09:49)
[2021-01-05] MEDS: Insulin DETEMIR 100 UNIT/ML X5UNITS SUBQ SCH ×2 (09:50→20:14)
[2021-01-05] MEDS: *HR* OxyCODONE Immed Rel 5 MG TABLET PO PRN (20:13)
[2021-01-05] MEDS: Sucralfate 1 GM TABLET PO SCH (20:14)
[2021-01-05] MEDS: Melatonin 3 MG TABLET PO PRN (20:14)
[2021-01-05] MEDS: *HR* LORazepam 0.5 MG TABLET PO PRN (22:08)
[2021-01-06] MEDS: *HR* OxyCODONE Immed Rel 5 MG TABLET PO PRN ×2 (06:12→23:04)
[2021-01-06 08:11] LABS: Hematocrit 24.7 % (37.5-50.1); Hemoglobin 7.6 g/dL (12.9-16.9); Mean Corpuscular HGB Conc 30.8 g/dL (31.6-35.5); Mean Corpuscular Hemoglobin 28.3 pg (28.0-33.3); Mean Corpuscular Volume 91.8 fL (83.0-100.0); Mean Platelet Volume 9.6 fL (9.4-12.4); Platelet Count 250 K/mcL (140-400); Red Blood Count 2.69 M/mcL (4.19-5.50); Red Cell Distribution Width 16.1 % (11.5-14.5)
[2021-01-06] MEDS: Insulin LISPRO 300 UNITS/3 ML VIAL SUBQ SCH ×6 (08:36→16:17)
[2021-01-06] MEDS: Aspirin Enteric Coated 81 MG Tablet PO SCH (08:36)
[2021-01-06] MEDS: Insulin DETEMIR 100 UNIT/ML X5UNITS SUBQ SCH ×2 (08:36→20:28)
[2021-01-06] MEDS: Multivit/Ca/Min/Fe/FA 1 TAB TABLET PO SCH (08:36)
[2021-01-06] MEDS: Furosemide 40 MG TABLET PO SCH (08:37)
[2021-01-06] MEDS: hydrALAZINE 25 MG TABLET PO SCH ×3 (08:37→20:28)
[2021-01-06] MEDS: Apixaban 5 MG TABLET PO SCH ×2 (08:37→20:29)
[2021-01-06] MEDS: BuPROPion XL (24 HR) 150 MG TABLET PO SCH (08:37)
[2021-01-06] MEDS: Metoprolol XL (24 HR) Succ 25 MG TAB.ER.24H PO SCH (08:37)
[2021-01-06] MEDS: Sennosides/Docusate Sodium TABLET PO SCH ×2 (08:40→20:28)
[2021-01-06] MEDS: Melatonin 3 MG TABLET PO PRN (20:28)
[2021-01-06] MEDS: *HR* LORazepam 0.5 MG TABLET PO PRN (20:28)
[2021-01-06] MEDS: Sucralfate 1 GM TABLET PO SCH (20:28)
[2021-01-07] MEDS: Insulin DETEMIR 100 UNIT/ML X5UNITS SUBQ SCH ×2 (08:42→22:07)
[2021-01-07] MEDS: Sennosides/Docusate Sodium TABLET PO SCH ×2 (08:43→22:06)
[2021-01-07] MEDS: Insulin LISPRO 300 UNITS/3 ML VIAL SUBQ SCH ×6 (08:43→16:25)
[2021-01-07] MEDS: *HR* LORazepam 0.5 MG TABLET PO PRN ×2 (08:44→22:06)
[2021-01-07] MEDS: hydrALAZINE 25 MG TABLET PO SCH ×3 (08:44→22:06)
[2021-01-07] MEDS: Aspirin Enteric Coated 81 MG Tablet PO SCH (08:45)
[2021-01-07] MEDS: Furosemide 40 MG TABLET PO SCH (08:45)
[2021-01-07] MEDS: Metoprolol XL (24 HR) Succ 25 MG TAB.ER.24H PO SCH (08:45)
[2021-01-07] MEDS: Multivit/Ca/Min/Fe/FA 1 TAB TABLET PO SCH (08:45)
[2021-01-07] MEDS: BuPROPion XL (24 HR) 150 MG TABLET PO SCH (08:45)
[2021-01-07] MEDS: Apixaban 5 MG TABLET PO SCH ×2 (08:45→22:07)
[2021-01-07] MEDS: *HR* OxyCODONE Immed Rel 5 MG TABLET PO PRN (08:45)
[2021-01-07] MEDS: Melatonin 3 MG TABLET PO PRN (22:06)
[2021-01-07] MEDS: Sucralfate 1 GM TABLET PO SCH (22:06)
[2021-01-07] MEDS: Methyl Salicylate/Menthol 57 APPL/57 GM TUBE TP PRN (22:14)
[2021-01-08] MEDS: *HR* OxyCODONE Immed Rel 5 MG TABLET PO PRN ×2 (06:47→21:14)
[2021-01-08] MEDS: Insulin LISPRO 300 UNITS/3 ML VIAL SUBQ SCH ×6 (07:18→17:31)
[2021-01-08] MEDS: *HR* LORazepam 0.5 MG TABLET PO PRN ×2 (08:39→21:15)
[2021-01-08] MEDS: Furosemide 40 MG TABLET PO SCH (08:39)
[2021-01-08] MEDS: Metoprolol XL (24 HR) Succ 25 MG TAB.ER.24H PO SCH (08:39)
[2021-01-08] MEDS: BuPROPion XL (24 HR) 150 MG TABLET PO SCH (08:39)
[2021-01-08] MEDS: Multivit/Ca/Min/Fe/FA 1 TAB TABLET PO SCH (08:39)
[2021-01-08] MEDS: Sennosides/Docusate Sodium TABLET PO SCH ×2 (08:39→21:22)
[2021-01-08] MEDS: Aspirin Enteric Coated 81 MG Tablet PO SCH (08:39)
[2021-01-08] MEDS: Apixaban 5 MG TABLET PO SCH ×2 (08:39→21:15)
[2021-01-08] MEDS: Insulin DETEMIR 100 UNIT/ML X5UNITS SUBQ SCH ×2 (09:07→21:15)
[2021-01-08] MEDS: hydrALAZINE 25 MG TABLET PO SCH ×3 (09:07→21:14)
[2021-01-08] MEDS: Melatonin 3 MG TABLET PO PRN (21:15)
[2021-01-08] MEDS: Methyl Salicylate/Menthol 57 APPL/57 GM TUBE TP PRN (21:18)
[2021-01-08] MEDS: Sucralfate 1 GM TABLET PO SCH (21:25)
[2021-01-09 07:04] LABS: Basophils % 0.5 %; Eosinophils # 0.2 K/mcL (0.0-0.6); Eosinophils % 2.5 %; Hematocrit 21.4 % (37.5-50.1); Hemoglobin 6.6 g/dL (12.9-16.9); Immature Granulocytes % 0.2 % (0-4); Lymphocytes # 1.7 K/mcL (0.6-4.6); Lymphocytes % 26.9 %; Mean Corpuscular HGB Conc 30.8 g/dL (31.6-35.5); Mean Corpuscular Volume 90.7 fL (83.0-100.0); Monocytes # 0.7 K/mcL (0.0-1.3); Monocytes % 10.3 %; Neutrophils # 3.8 K/mcL (1.6-8.9); Platelet Count 228 K/mcL (140-400); Red Blood Count 2.36 M/mcL (4.19-5.50); Red Cell Distribution Width 15.9 % (11.5-14.5); Segmented Neutrophils % 59.6 %; White Blood Count 6.3 K/mcL (4.3-11.1)
[2021-01-09] MEDS ORDERED: Furosemide 20 MG/2 ML VIAL IVP ONE ×3 (07:29→16:16)
[2021-01-09] MEDS ORDERED: 0.9 % Sodium Chloride 250 ML IVC SCH (07:30)
[2021-01-09 07:42] LABS: Potassium 4.5 mEq/L (3.5-5.1)
[2021-01-09] MEDS: Insulin LISPRO 300 UNITS/3 ML VIAL SUBQ SCH ×6 (08:34→16:44)
[2021-01-09 08:53] LABS: Retculocyte # 0.04 M/mcL (0.05-0.10); Reticulocyte % 1.6 % (1.6-2.8)
[2021-01-09] MEDS ORDERED: 0.9 % Sodium Chloride 250 ML ONE (08:56)
[2021-01-09] MEDS: Multivit/Ca/Min/Fe/FA 1 TAB TABLET PO SCH (09:01)
[2021-01-09] MEDS: hydrALAZINE 25 MG TABLET PO SCH ×3 (09:01→20:36)
[2021-01-09] MEDS: BuPROPion XL (24 HR) 150 MG TABLET PO SCH (09:01)
[2021-01-09] MEDS: Metoprolol XL (24 HR) Succ 25 MG TAB.ER.24H PO SCH (09:01)
[2021-01-09] MEDS: Sennosides/Docusate Sodium TABLET PO SCH ×2 (09:02→20:35)
[2021-01-09] MEDS: Insulin DETEMIR 100 UNIT/ML X5UNITS SUBQ SCH ×2 (09:31→20:37)
[2021-01-09] MEDS: *HR* OxyCODONE Immed Rel 5 MG TABLET PO PRN ×2 (10:29→20:36)
[2021-01-09] MEDS: Melatonin 3 MG TABLET PO PRN (20:35)
[2021-01-09] MEDS: Sucralfate 1 GM TABLET PO SCH (20:35)
[2021-01-10] MEDS: Temazepam 15 MG CAPSULE PO PRN ×2 (00:49→20:26)
[2021-01-10 06:51] LABS: Basophils % 0.5 %; Eosinophils # 0.1 K/mcL (0.0-0.6); Eosinophils % 2.1 %; Hematocrit 26.6 % (37.5-50.1); Hemoglobin 8.5 g/dL (12.9-16.9); Immature Granulocytes % 0.5 % (0-4); Lymphocytes # 1.4 K/mcL (0.6-4.6); Lymphocytes % 24.4 %; Mean Corpuscular Hemoglobin 28.6 pg (28.0-33.3); Mean Corpuscular Volume 89.6 fL (83.0-100.0); Mean Platelet Volume 9.6 fL (9.4-12.4); Monocytes # 0.6 K/mcL (0.0-1.3); Monocytes % 10.6 %; Neutrophils # 3.6 K/mcL (1.6-8.9); Platelet Count 203 K/mcL (140-400); Red Blood Count 2.97 M/mcL (4.19-5.50); Red Cell Distribution Width 15.5 % (11.5-14.5); Segmented Neutrophils % 61.9 %; White Blood Count 5.7 K/mcL (4.3-11.1)
[2021-01-10 07:06] LABS: Calcium 8.1 mg/dL (8.6-10.3); Potassium 4.6 mEq/L (3.5-5.1)
[2021-01-10] MEDS: Sennosides/Docusate Sodium TABLET PO SCH ×2 (09:30→20:27)
[2021-01-10] MEDS: *HR* OxyCODONE Immed Rel 5 MG TABLET PO PRN ×2 (09:32→20:26)
[2021-01-10] MEDS: Furosemide 40 MG TABLET PO SCH (09:32)
[2021-01-10] MEDS: Multivit/Ca/Min/Fe/FA 1 TAB TABLET PO SCH (09:32)
[2021-01-10] MEDS: BuPROPion XL (24 HR) 150 MG TABLET PO SCH (09:32)
[2021-01-10] MEDS: Metoprolol XL (24 HR) Succ 25 MG TAB.ER.24H PO SCH (09:33)
[2021-01-10] MEDS: Insulin DETEMIR 100 UNIT/ML X5UNITS SUBQ SCH ×2 (09:33→20:27)
[2021-01-10] MEDS: hydrALAZINE 25 MG TABLET PO SCH ×3 (09:33→20:27)
[2021-01-10] MEDS: Insulin LISPRO 300 UNITS/3 ML VIAL SUBQ SCH ×6 (09:38→17:04)
[2021-01-10] MEDS: Sucralfate 1 GM TABLET PO SCH (20:26)
[2021-01-11] MEDS: Insulin LISPRO 300 UNITS/3 ML VIAL SUBQ SCH ×4 (08:41→17:04)
[2021-01-11] MEDS: Aspirin Enteric Coated 81 MG Tablet PO SCH (08:42)
[2021-01-11] MEDS: BuPROPion XL (24 HR) 150 MG TABLET PO SCH (08:42)
[2021-01-11] MEDS: Multivit/Ca/Min/Fe/FA 1 TAB TABLET PO SCH (08:42)
[2021-01-11] MEDS: Sennosides/Docusate Sodium TABLET PO SCH ×2 (08:42→19:57)
[2021-01-11] MEDS: Furosemide 40 MG TABLET PO SCH (08:43)
[2021-01-11] MEDS: Metoprolol XL (24 HR) Succ 25 MG TAB.ER.24H PO SCH (08:43)
[2021-01-11] MEDS: hydrALAZINE 25 MG TABLET PO SCH ×3 (08:43→19:57)
[2021-01-11] MEDS: Insulin DETEMIR 100 UNIT/ML X5UNITS SUBQ SCH (08:44)
[2021-01-11 09:23] LABS: Basophils % 0.7 %; Eosinophils # 0.2 K/mcL (0.0-0.6); Eosinophils % 2.9 %; Hematocrit 29.3 % (37.5-50.1); Hemoglobin 9.1 g/dL (12.9-16.9); Immature Granulocytes % 0.5 % (0-4); Lymphocytes # 1.4 K/mcL (0.6-4.6); Lymphocytes % 22.1 %; Mean Corpuscular HGB Conc 31.1 g/dL (31.6-35.5); Mean Corpuscular Hemoglobin 27.9 pg (28.0-33.3); Mean Corpuscular Volume 89.9 fL (83.0-100.0); Mean Platelet Volume 9.8 fL (9.4-12.4); Monocytes # 0.6 K/mcL (0.0-1.3); Monocytes % 9.3 %; Platelet Count 219 K/mcL (140-400); Red Blood Count 3.26 M/mcL (4.19-5.50); Red Cell Distribution Width 15.4 % (11.5-14.5); Segmented Neutrophils % 64.5 %; White Blood Count 6.1 K/mcL (4.3-11.1)
[2021-01-11] MEDS: *HR* OxyCODONE Immed Rel 5 MG TABLET PO PRN ×2 (09:43→19:58)
[2021-01-11] MEDS: Apixaban 5 MG TABLET PO SCH ×2 (11:01→19:57)
[2021-01-11] MEDS: Melatonin 3 MG TABLET PO PRN (19:57)
[2021-01-11] MEDS: Sucralfate 1 GM TABLET PO SCH (19:57)
[2021-01-11] MEDS: *HR* LORazepam 0.5 MG TABLET PO PRN (19:58)
[2021-01-11] MEDS: Temazepam 15 MG CAPSULE PO PRN (22:18)
[2021-01-12] MEDS: *HR* OxyCODONE Immed Rel 5 MG TABLET PO PRN ×2 (04:53→19:56)
[2021-01-12] MEDS: Insulin LISPRO 300 UNITS/3 ML VIAL SUBQ SCH ×3 (09:28→16:44)
[2021-01-12] MEDS: Insulin DETEMIR 100 UNIT/ML X5UNITS SUBQ SCH (09:57)
[2021-01-12] MEDS: Apixaban 5 MG TABLET PO SCH ×2 (10:24→19:55)
[2021-01-12] MEDS: hydrALAZINE 25 MG TABLET PO SCH ×3 (10:25→19:55)
[2021-01-12] MEDS: BuPROPion XL (24 HR) 150 MG TABLET PO SCH (10:26)
[2021-01-12] MEDS: Metoprolol XL (24 HR) Succ 25 MG TAB.ER.24H PO SCH (10:26)
[2021-01-12] MEDS: Nystatin POWDER 30 GM BOTTLE TP SCH ×3 (10:26→20:11)
[2021-01-12] MEDS: Sennosides/Docusate Sodium TABLET PO SCH ×2 (10:26→19:54)
[2021-01-12] MEDS: Aspirin Enteric Coated 81 MG Tablet PO SCH (10:26)
[2021-01-12] MEDS: Furosemide 40 MG TABLET PO SCH (10:26)
[2021-01-12] MEDS: Multivit/Ca/Min/Fe/FA 1 TAB TABLET PO SCH (10:26)
[2021-01-12] MEDS: Sucralfate 1 GM TABLET PO SCH (19:54)
[2021-01-12] MEDS: *HR* LORazepam 0.5 MG TABLET PO PRN (19:56)
[2021-01-12] MEDS: Melatonin 3 MG TABLET PO PRN (19:56)
[2021-01-13] MEDS: Temazepam 15 MG CAPSULE PO PRN (00:03)
[2021-01-13] MEDS: Sennosides/Docusate Sodium TABLET PO SCH ×2 (08:32→20:30)
[2021-01-13] MEDS: Aspirin Enteric Coated 81 MG Tablet PO SCH (08:32)
[2021-01-13] MEDS: Metoprolol XL (24 HR) Succ 25 MG TAB.ER.24H PO SCH (08:32)
[2021-01-13] MEDS: BuPROPion XL (24 HR) 150 MG TABLET PO SCH (08:32)
[2021-01-13] MEDS: Multivit/Ca/Min/Fe/FA 1 TAB TABLET PO SCH (08:32)
[2021-01-13] MEDS: hydrALAZINE 25 MG TABLET PO SCH ×3 (08:32→20:30)
[2021-01-13] MEDS: Furosemide 40 MG TABLET PO SCH (08:33)
[2021-01-13] MEDS: Insulin DETEMIR 100 UNIT/ML X5UNITS SUBQ SCH (08:33)
[2021-01-13] MEDS: Apixaban 5 MG TABLET PO SCH ×2 (08:33→20:30)
[2021-01-13] MEDS: Insulin LISPRO 300 UNITS/3 ML VIAL SUBQ SCH ×3 (08:33→16:52)
[2021-01-13] MEDS: Nystatin POWDER 30 GM BOTTLE TP SCH ×3 (08:34→20:31)
[2021-01-13] MEDS: *HR* OxyCODONE Immed Rel 5 MG TABLET PO PRN (11:18)
[2021-01-13] MEDS: Sucralfate 1 GM TABLET PO SCH (20:30)
[2021-01-14] MEDS: *HR* LORazepam 0.5 MG TABLET PO PRN (01:22)
[2021-01-14 08:47] LABS: Basophils % 0.8 %; Eosinophils # 0.2 K/mcL (0.0-0.6); Eosinophils % 3.6 %; Hematocrit 26.6 % (37.5-50.1); Hemoglobin 8.2 g/dL (12.9-16.9); Immature Granulocytes % 0.2 % (0-4); Lymphocytes # 1.4 K/mcL (0.6-4.6); Lymphocytes % 25.8 %; Mean Corpuscular HGB Conc 30.8 g/dL (31.6-35.5); Mean Corpuscular Hemoglobin 27.8 pg (28.0-33.3); Mean Corpuscular Volume 90.2 fL (83.0-100.0); Mean Platelet Volume 9.6 fL (9.4-12.4); Monocytes # 0.5 K/mcL (0.0-1.3); Monocytes % 9.8 %; Neutrophils # 3.2 K/mcL (1.6-8.9); Platelet Count 168 K/mcL (140-400); Red Blood Count 2.95 M/mcL (4.19-5.50); Red Cell Distribution Width 15.3 % (11.5-14.5); Segmented Neutrophils % 59.8 %; White Blood Count 5.3 K/mcL (4.3-11.1)
[2021-01-14] MEDS: Apixaban 5 MG TABLET PO SCH ×2 (09:05→20:08)
[2021-01-14] MEDS: Metoprolol XL (24 HR) Succ 25 MG TAB.ER.24H PO SCH (09:05)
[2021-01-14] MEDS: hydrALAZINE 25 MG TABLET PO SCH ×3 (09:05→20:07)
[2021-01-14] MEDS: Sennosides/Docusate Sodium TABLET PO SCH ×2 (09:05→20:07)
[2021-01-14] MEDS: Multivit/Ca/Min/Fe/FA 1 TAB TABLET PO SCH (09:05)
[2021-01-14] MEDS: Aspirin Enteric Coated 81 MG Tablet PO SCH (09:05)
[2021-01-14] MEDS: Insulin LISPRO 300 UNITS/3 ML VIAL SUBQ SCH ×3 (09:06→16:48)
[2021-01-14] MEDS: *HR* OxyCODONE Immed Rel 5 MG TABLET PO PRN ×2 (09:06→20:07)
[2021-01-14] MEDS: BuPROPion XL (24 HR) 150 MG TABLET PO SCH (09:06)
[2021-01-14] MEDS: Furosemide 40 MG TABLET PO SCH (09:06)
[2021-01-14 09:07] LABS: Calcium 8.2 mg/dL (8.6-10.3); Potassium 4.6 mEq/L (3.5-5.1)
[2021-01-14] MEDS: Insulin DETEMIR 100 UNIT/ML X5UNITS SUBQ SCH (09:07)
[2021-01-14] MEDS: Nystatin POWDER 30 GM BOTTLE TP SCH ×3 (09:07→20:08)
[2021-01-14] MEDS: Sucralfate 1 GM TABLET PO SCH (20:08)
[2021-01-14] MEDS: Temazepam 15 MG CAPSULE PO PRN (20:08)
[2021-01-15] MEDS: *HR* LORazepam 0.5 MG TABLET PO PRN ×2 (03:08→20:55)
[2021-01-15] MEDS: Insulin DETEMIR 100 UNIT/ML X5UNITS SUBQ SCH (10:41)
[2021-01-15] MEDS: Metoprolol XL (24 HR) Succ 25 MG TAB.ER.24H PO SCH (10:42)
[2021-01-15] MEDS: BuPROPion XL (24 HR) 150 MG TABLET PO SCH (10:42)
[2021-01-15] MEDS: Multivit/Ca/Min/Fe/FA 1 TAB TABLET PO SCH (10:42)
[2021-01-15] MEDS: Aspirin Enteric Coated 81 MG Tablet PO SCH (10:42)
[2021-01-15] MEDS: Apixaban 5 MG TABLET PO SCH ×2 (10:42→20:54)
[2021-01-15] MEDS: Furosemide 40 MG TABLET PO SCH (10:43)
[2021-01-15] MEDS: Insulin LISPRO 300 UNITS/3 ML VIAL SUBQ SCH ×3 (10:43→16:34)
[2021-01-15] MEDS: hydrALAZINE 25 MG TABLET PO SCH ×3 (10:43→20:55)
[2021-01-15] MEDS: Sennosides/Docusate Sodium TABLET PO SCH ×2 (10:43→20:54)
[2021-01-15] MEDS: Nystatin POWDER 30 GM BOTTLE TP SCH ×3 (10:44→20:55)
[2021-01-15] MEDS: *HR* OxyCODONE Immed Rel 5 MG TABLET PO PRN ×2 (10:50→20:55)
[2021-01-15] MEDS: Sucralfate 1 GM TABLET PO SCH (20:54)
[2021-01-15] MEDS: Melatonin 3 MG TABLET PO PRN (20:55)
[2021-01-16] MEDS: Temazepam 15 MG CAPSULE PO PRN (01:11)
[2021-01-16] MEDS: Insulin LISPRO 300 UNITS/3 ML VIAL SUBQ SCH ×3 (08:12→16:09)
[2021-01-16] MEDS: Multivit/Ca/Min/Fe/FA 1 TAB TABLET PO SCH (08:21)
[2021-01-16] MEDS: Sennosides/Docusate Sodium TABLET PO SCH ×2 (08:21→20:08)
[2021-01-16] MEDS: Aspirin Enteric Coated 81 MG Tablet PO SCH (08:21)
[2021-01-16] MEDS: Insulin DETEMIR 100 UNIT/ML X5UNITS SUBQ SCH (08:21)
[2021-01-16] MEDS: BuPROPion XL (24 HR) 150 MG TABLET PO SCH (08:21)
[2021-01-16] MEDS: Furosemide 40 MG TABLET PO SCH (08:21)
[2021-01-16] MEDS: Metoprolol XL (24 HR) Succ 25 MG TAB.ER.24H PO SCH (08:22)
[2021-01-16] MEDS: hydrALAZINE 25 MG TABLET PO SCH ×3 (08:22→20:08)
[2021-01-16] MEDS: Apixaban 5 MG TABLET PO SCH ×2 (08:22→20:09)
[2021-01-16] MEDS: Nystatin POWDER 30 GM BOTTLE TP SCH ×3 (08:23→20:14)
[2021-01-16] MEDS: *HR* OxyCODONE Immed Rel 5 MG TABLET PO PRN ×2 (11:55→20:08)
[2021-01-16] MEDS: *HR* LORazepam 0.5 MG TABLET PO PRN (20:09)
[2021-01-16] MEDS: Melatonin 3 MG TABLET PO PRN (20:09)
[2021-01-16] MEDS: Sucralfate 1 GM TABLET PO SCH (20:09)
[2021-01-17] MEDS: *HR* OxyCODONE Immed Rel 5 MG TABLET PO PRN (04:35)
[2021-01-17 07:10] VITALS: BP 129/78
[2021-01-17] MEDS: hydrALAZINE 25 MG TABLET PO SCH (08:12)
[2021-01-17] MEDS: Multivit/Ca/Min/Fe/FA 1 TAB TABLET PO SCH (08:12)
[2021-01-17] MEDS: Metoprolol XL (24 HR) Succ 25 MG TAB.ER.24H PO SCH (08:12)
[2021-01-17] MEDS: Furosemide 40 MG TABLET PO SCH (08:12)
[2021-01-17] MEDS: Sennosides/Docusate Sodium TABLET PO SCH (08:13)
[2021-01-17] MEDS: BuPROPion XL (24 HR) 150 MG TABLET PO SCH (08:13)
[2021-01-17] MEDS: Apixaban 5 MG TABLET PO SCH (08:13)
[2021-01-17] MEDS: Aspirin Enteric Coated 81 MG Tablet PO SCH (08:13)
[2021-01-17] MEDS: Insulin LISPRO 300 UNITS/3 ML VIAL SUBQ SCH ×2 (08:14→11:41)
[2021-01-17] MEDS: Nystatin POWDER 30 GM BOTTLE TP SCH (08:15)
[2021-01-17] MEDS: Insulin DETEMIR 100 UNIT/ML X5UNITS SUBQ SCH (08:15)
== END 2021-01-17 13:40 | disposition hospice, home (50) | DRG 189 ==
LOC: INPPIK 12-22 12:22
PROVIDERS: ADMIT Family Medicine; ATTEND Family Medicine